=== PATIENT | male | born 2005 | race African-American/Black ===

== ENCOUNTER 2024-06-20 20:09 | Emergency (ER) | payer OTHER ==
[2024-06-20] MEDS ORDERED: Lidocaine 1% (PF) 30 ML VIAL ONE (20:37)
[2024-06-20] MEDS ORDERED: Triamcinolone 40 MG/ML VIAL FS SCH (21:15)
== END 2024-06-20 21:40 | disposition home or self-care (01) ==
LOC: CSHERS 20:09
DX: M67.431 Ganglion, right wrist (principal)
CPT/HCPCS: 10060; J3301

== ENCOUNTER 2025-01-16 16:24 | Inpatient (IN) | payer OTHER ==
[~2025-01-16 16:24] MED LIST: Iopamidol 300 61% 100 ML VIAL FS ONE
[2025-01-16 17:38] LABS: #Basophils Less than 0.03 10x3/uL (0.0-0.2); #Eosinophils Less than 0.03 10x3/uL (0.0-0.5); #Monocytes 0.70 10x3/uL (0.0-1.1); #Neutrophils 4.92 10x3/uL (1.5-8.4); %Basophils 0.1 % (0.0-2.0); %Eosinophils 0.2 % (0.0-6.0); %Lymphocytes 37.8 % (18.0-47.0); %Monocytes 7.7 % (0.0-10.0); %Neutrophils 54.0 % (40.0-75.0); Hematocrit 27.3 % (38.8-50.0); Hemoglobin 8.7 g/dL (13.5-17.5); Mean Corpuscular Hemoglobin 23.1 pg (27.0-33.0); Mean Corpuscular Volume 72.4 fL (81.2-95.1); Platelet Count 196 10x3/uL (150-450); Red Blood Cell (RBC) Count 3.77 10x6/uL (4.32-5.72); White Blood Cell (WBC) Count 9.11 10x3/uL (3.5-10.5)
[2025-01-16 17:48] LABS: ALT (SGPT) 7 U/L (Less than 45); AST (SGOT) 17 U/L (11-34); Albumin 4.1 g/dL (3.1-4.5); Alkaline Phosphatase 56 U/L (40-110); Anion Gap 11 mmol/L (10-20); BUN (Urea Nitrogen) 36 mg/dL (8.9-20.6); Bilirubin, Total 0.1 mg/dL (0.3-1.2); Calc. Creatinine Clearance 0 mL/min (70-130); Calcium 8.6 mg/dL (7.8-10.44); Carbon Dioxide 24 mmol/L (22-29); Chloride 105 mmol/L (98-107); Globulin 2.1 g/dL (2.4-3.5); Glucose 91 mg/dL (70-105); Lipase 24 U/L (8-78); Potassium 4.3 mmol/L (3.5-5.1); Sodium 136 mmol/L (136-145)
[2025-01-16] MEDS ORDERED: Pantoprazole 40 MG VIAL ONE (18:14)
[2025-01-16 18:34] LABS: INR-International Normal Ratio 1.1; PTT 27.5 sec (22.0-33.0); Prothrombin Time 12.1 sec (9.5-12.1)
[2025-01-16 21:19] LABS: Platelet Adequacy Comment Appears Adequate
[2025-01-16 21:20] LABS: Microcytosis MARKED = >30 cells (100X) (0-5/hpf)
[2025-01-16] MEDS ORDERED: Acetaminophen 325 MG TAB PO PRN (21:45)
[2025-01-16 21:56] VITALS: BMI 21.7
[2025-01-16 23:13] LABS: #Basophils Less than 0.03 10x3/uL (0.0-0.2); #Eosinophils Less than 0.03 10x3/uL (0.0-0.5); #Monocytes 0.66 10x3/uL (0.0-1.1); #Neutrophils 2.92 10x3/uL (1.5-8.4); %Basophils 0.1 % (0.0-2.0); %Eosinophils 0.3 % (0.0-6.0); %Lymphocytes 50.6 % (18.0-47.0); %Monocytes 9.0 % (0.0-10.0); %Neutrophils 39.9 % (40.0-75.0); Hematocrit 21.4 % (38.8-50.0); Hemoglobin 6.9 g/dL (13.5-17.5); Mean Corpuscular Hemoglobin 23.2 pg (27.0-33.0); Mean Corpuscular Volume 72.1 fL (81.2-95.1); Platelet Count 145 10x3/uL (150-450); Red Blood Cell (RBC) Count 2.97 10x6/uL (4.32-5.72); White Blood Cell (WBC) Count 7.33 10x3/uL (3.5-10.5)
[2025-01-16 23:25] LABS: Iron 118 ug/dL (65-175); Iron Binding Capacity, Total 206 mcg/dL (261-462)
[2025-01-16 23:27] LABS: Iron 117 ug/dL (65-175); Iron Binding Capacity, Total 204 mcg/dL (261-462)
[2025-01-17 04:32] LABS: #Basophils Less than 0.03 10x3/uL (0.0-0.2); #Eosinophils 0.04 10x3/uL (0.0-0.5); #Monocytes 0.68 10x3/uL (0.0-1.1); #Neutrophils 2.69 10x3/uL (1.5-8.4); %Basophils 0.2 % (0.0-2.0); %Eosinophils 0.6 % (0.0-6.0); %Lymphocytes 48.0 % (18.0-47.0); %Monocytes 10.3 % (0.0-10.0); %Neutrophils 40.4 % (40.0-75.0); Hematocrit 23.1 % (38.8-50.0); Hemoglobin 7.7 g/dL (13.5-17.5); Mean Corpuscular Hemoglobin 25.1 pg (27.0-33.0); Mean Corpuscular Volume 75.2 fL (81.2-95.1); Platelet Count 141 10x3/uL (150-450); Red Blood Cell (RBC) Count 3.07 10x6/uL (4.32-5.72); White Blood Cell (WBC) Count 6.63 10x3/uL (3.5-10.5)
[2025-01-17 04:43] LABS: Anion Gap 7 mmol/L (10-20); BUN (Urea Nitrogen) 26 mg/dL (8.9-20.6); Calc. Creatinine Clearance 110 mL/min (70-130); Calcium 8.0 mg/dL (7.8-10.44); Carbon Dioxide 25 mmol/L (22-29); Chloride 109 mmol/L (98-107); Glucose 90 mg/dL (70-105); Potassium 4.4 mmol/L (3.5-5.1); Sodium 137 mmol/L (136-145)
[2025-01-17] MEDS: Pantoprazole 40 MG VIAL IVP SCH (08:53)
[2025-01-17 10:00] LABS: Hematocrit 22.6 % (38.8-50.0); Hemoglobin 7.4 g/dL (13.5-17.5)
[2025-01-17] MEDS ORDERED: Lidocaine 1% PF 5 ML VIAL ONE (18:23)
[2025-01-17] MEDS ORDERED: PROPOFOL 40 ML ONE (18:23)
[2025-01-17] MEDS ORDERED: PROPOFOL 20 ML ONE ×3 (18:41→19:14)
[2025-01-17 18:42] LABS: Hematocrit 24.1 % (38.8-50.0); Hemoglobin 7.7 g/dL (13.5-17.5)
[2025-01-17] MEDS ORDERED: EPINEPHrine 1 MG/10 ML Abboject SYRINGE ONE (18:43)
[2025-01-17] MEDS: FLU (Fluarix Triv) 25-26 (6MOS UP)/PF 45 MCG/0.5 ML Syringe IM ONE (19:55)
[2025-01-17] MEDS: Ondansetron PF 4 MG/2 ML Vial IVP PRN (20:06)
[2025-01-18 03:44] LABS: Anion Gap 11 mmol/L (10-20); BUN (Urea Nitrogen) 12 mg/dL (8.9-20.6); Calc. Creatinine Clearance 98 mL/min (70-130); Calcium 8.0 mg/dL (7.8-10.44); Carbon Dioxide 22 mmol/L (22-29); Chloride 107 mmol/L (98-107); Glucose 89 mg/dL (70-105); Magnesium 1.5 mg/dL (1.6-2.6); Potassium 3.8 mmol/L (3.5-5.1); Sodium 136 mmol/L (136-145)
[2025-01-18 03:45] LABS: Platelet Count 138 10x3/uL (150-450)
[2025-01-18 03:46] LABS: #Basophils Less than 0.03 10x3/uL (0.0-0.2); #Eosinophils Less than 0.03 10x3/uL (0.0-0.5); #Monocytes 0.71 10x3/uL (0.0-1.1); #Neutrophils 9.71 10x3/uL (1.5-8.4); %Basophils 0.1 % (0.0-2.0); %Eosinophils 0.0 % (0.0-6.0); %Lymphocytes 9.9 % (18.0-47.0); %Monocytes 6.1 % (0.0-10.0); %Neutrophils 83.5 % (40.0-75.0); Hematocrit 21.7 % (38.8-50.0); Hemoglobin 7.3 g/dL (13.5-17.5); Mean Corpuscular Hemoglobin 25.0 pg (27.0-33.0); Mean Corpuscular Volume 74.3 fL (81.2-95.1); Red Blood Cell (RBC) Count 2.92 10x6/uL (4.32-5.72); White Blood Cell (WBC) Count 11.63 10x3/uL (3.5-10.5)
[2025-01-18] MEDS: NOREPINEPHRINE 8 MG/250 ML-D5W 250 ML IVPB SCH (05:36)
[2025-01-18] MEDS: Albumin 25% 25 GM (100 mL) BOT IVPB SCH (09:58)
[2025-01-18] MEDS: Magnesium 2 GM/50 ML(in water) 2 GM in Premix 1 BAG IVPB SCH (10:00)
[2025-01-18 12:54] LABS: Hematocrit 20.2 % (38.8-50.0); Hemoglobin 6.6 g/dL (13.5-17.5)
[2025-01-18 19:06] LABS: Hematocrit 26.0 % (38.8-50.0); Hemoglobin 8.7 g/dL (13.5-17.5)
[2025-01-19 03:52] LABS: #Basophils Less than 0.03 10x3/uL (0.0-0.2); #Eosinophils 0.03 10x3/uL (0.0-0.5); #Monocytes 0.86 10x3/uL (0.0-1.1); #Neutrophils 5.81 10x3/uL (1.5-8.4); %Basophils 0.1 % (0.0-2.0); %Eosinophils 0.3 % (0.0-6.0); %Lymphocytes 26.6 % (18.0-47.0); %Monocytes 9.4 % (0.0-10.0); %Neutrophils 63.3 % (40.0-75.0); Hematocrit 23.3 % (38.8-50.0); Hemoglobin 7.8 g/dL (13.5-17.5); Mean Corpuscular Hemoglobin 25.2 pg (27.0-33.0); Mean Corpuscular Volume 75.4 fL (81.2-95.1); Platelet Count 146 10x3/uL (150-450); Red Blood Cell (RBC) Count 3.09 10x6/uL (4.32-5.72); White Blood Cell (WBC) Count 9.18 10x3/uL (3.5-10.5)
[2025-01-19 04:11] LABS: Anion Gap 10 mmol/L (10-20); BUN (Urea Nitrogen) 8 mg/dL (8.9-20.6); Calc. Creatinine Clearance 99 mL/min (70-130); Calcium 7.9 mg/dL (7.8-10.44); Carbon Dioxide 21 mmol/L (22-29); Chloride 110 mmol/L (98-107); Glucose 99 mg/dL (70-105); Magnesium 1.8 mg/dL (1.6-2.6); Potassium 3.8 mmol/L (3.5-5.1); Sodium 137 mmol/L (136-145)
[2025-01-19 17:35] LABS: Hematocrit 25.7 % (38.8-50.0); Hemoglobin 8.5 g/dL (13.5-17.5)
[2025-01-20 03:26] LABS: #Basophils Less than 0.03 10x3/uL (0.0-0.2); #Eosinophils 0.07 10x3/uL (0.0-0.5); #Monocytes 0.70 10x3/uL (0.0-1.1); #Neutrophils 4.43 10x3/uL (1.5-8.4); %Basophils 0.1 % (0.0-2.0); %Eosinophils 0.9 % (0.0-6.0); %Lymphocytes 34.9 % (18.0-47.0); %Monocytes 8.7 % (0.0-10.0); %Neutrophils 55.2 % (40.0-75.0); Hematocrit 22.4 % (38.8-50.0); Hemoglobin 7.5 g/dL (13.5-17.5); Mean Corpuscular Hemoglobin 25.5 pg (27.0-33.0); Mean Corpuscular Volume 76.2 fL (81.2-95.1); Platelet Count 172 10x3/uL (150-450); Red Blood Cell (RBC) Count 2.94 10x6/uL (4.32-5.72); White Blood Cell (WBC) Count 8.03 10x3/uL (3.5-10.5)
[2025-01-20 03:40] LABS: Anion Gap 9 mmol/L (10-20); BUN (Urea Nitrogen) 7 mg/dL (8.9-20.6); Calc. Creatinine Clearance 116 mL/min (70-130); Calcium 8.0 mg/dL (7.8-10.44); Carbon Dioxide 23 mmol/L (22-29); Chloride 111 mmol/L (98-107); Glucose 102 mg/dL (70-105); Potassium 3.7 mmol/L (3.5-5.1); Sodium 139 mmol/L (136-145)
[2025-01-20 09:12] VITALS: TEMP 98.3
[2025-01-20 12:13] LABS: Hematocrit 26.2 % (38.8-50.0); Hemoglobin 8.6 g/dL (13.5-17.5)
[2025-01-20 12:42] VITALS: BP 132/62
== END 2025-01-20 13:15 | disposition home or self-care (01) | DRG 378 ==
LOC: CSHERS 16:24 → CSHICU 21:44 → INTOOBSV 21:44 → OBSVTOIN 01-17 14:10 → CSHICU 01-19 16:21
PROVIDERS: ADMIT Internal Medicine; ATTEND Internal Medicine
PROC: 0W3P8ZZ Control Bleeding in Gastrointestinal Tract, Via Natural or Artificial Opening Endoscopic (ICD-10-PCS; principal; 2025-01-18)
PROC: 30233N1 Transfusion of Nonautologous Red Blood Cells into Peripheral Vein, Percutaneous Approach (ICD-10-PCS; 2025-01-18)
DX: K26.4 Chronic or unspecified duodenal ulcer with hemorrhage (principal); D62 Acute posthemorrhagic anemia; K44.9 Diaphragmatic hernia without obstruction or gangrene; F17.290 Nicotine dependence, other tobacco product, uncomplicated
CPT/HCPCS: 36415; 36416; 36430; 74177; 80048; 80053; 82274; 82728; 83540; 83550; 83690; 83735; 85025; 85610; 85730; 86850; 86900; 86901; 87338; 94760; 94762; 96374; 96376; A4215; G0378; J0165; J2405; J2470; J2704; J3475; J7030; P9016; P9047; Q9967